=== PATIENT | female | born 1990 | race Caucasian/White ===

== ENCOUNTER 2019-01-06 00:28 | Emergency (ER) | payer MEDICAID ==
--- NOTE | 2019-01-06 00:54 | EDPHY ---
H & P Stated Complaint: 11/30. BLEEDING OFF AND ON, WORSE PAST 4 DAYS DENIES CRAMPING Time Seen by Provider: 01/06/19 00:39 HPI/ROS: Chief Complaint: Vaginal bleeding HPI: 28-year-old who was 1 month status post elective termination of is presenting complaining of persistent vaginal bleeding since the procedure. Patient states that had gotten wire weaver cloth but for the last 4-5 days it has gotten heavier again. She soaking about 8 pads a day. She does have a history of anemia. Has been feeling lightheaded but no fainting. No pelvic pain but has some occasional cramping. No urinary urgency or frequency or dysuria. No vaginal discharge. ROS: 10 systems were reviewed and were negative except those elements noted in the HPI. PMH: Anemia Social History: No smoking, no alcohol, no recreational drug use Family History: non-contributory Physical Exam: Gen: Awake, Alert, No Distress HEENT: Nose: no rhinorrhea Eyes: PERRLA, EOMI Mouth: Moist mucosa Neck: Supple, no JVD Chest: nontender, lungs clear to auscultation Heart: S1, S2 normal, no murmur Abd: Soft, non-tender, no guarding Back: no CVA tenderness, no midline tenderness Ext: no edema, non-tender Skin: no rash Neuro: CN II-XII intact, Sensation grossly intact, Strength 5/5 in bilateral upper and lower extremities - Personal History Current Tetanus/Diphtheria Vaccine: Unsure Current Tetanus Diphtheria and Acellular Pertussis (TDAP): Unsure - Medical/Surgical History Hx Asthma: Yes Hx Chronic Respiratory Disease: No Hx Diabetes: No Hx Cardiac Disease: No Hx Renal Disease: No Hx Cirrhosis: No Hx Alcoholism: No Hx HIV/AIDS: No Hx Splenectomy or Spleen Trauma: No Other PMH: ANEMIA, HYPOTHYROID, - Social History Smoking Status: Never smoked Constitutional: Initial Vital Signs Temperature (C) 36.8 C 01/06/19 00:32 Heart Rate 82 01/06/19 00:32 Respiratory Rate 18 01/06/19 00:32 Blood Pressure 113/71 01/06/19 00:32 O2 Sat (%) 98 01/06/19 00:32 O2 Delivery Mode Room Air Allergies/Adverse Reactions: cephalexin [From [employer]] Allergy (Verified 01/06/19 00:36) Home Medications: Medication Instructions Recorded Levothyroxine [Synthroid 50 mcg 50 mcg PO DAILY06 01/06/19 (*)] Sertraline HCl 20 mg PO 01/06/19 Medical Decision Making - Diagnostics Imaging Results: EXAM: US Pelvis, Complete. CLINICAL HISTORY: 1 month ago, now bleeding and pelvic pain TECHNIQUE: Transvaginal and transabdominal pelvic ultrasound (complete) with image documentation. COMPARISON: None provided. FINDINGS: ENDOMETRIUM: Measures 17 mm and appears hypervascular raising the possibility of retained products of conception UTERUS/CERVIX: Normal size and contour. No fibroid detected. Measures 9.4 x 5.2 cm RIGHT OVARY: Normal follicles. No adnexal mass. Normal blood flow. Measures 6.2 x 4.8 x 4.4 cm and demonstrates a 5.6 x 4.2 x 3.7 cm complex cyst LEFT OVARY: Normal follicles. No adnexal mass. Normal blood flow. Measures 2.7 x 2.1 x 2.7 cm FREE FLUID: No free fluid. IMPRESSION: Thickened hypervascular endometrium raising the possibility of retained products of conception. A complex right ovarian cyst is noted. ELECTRONICALLY SIGNED BY: Rickie Chaudhry MD Jan 06, 2019 1:30:37 AM MDT ED Course/Re-evaluation: Ultrasound an laboratory results noted. Patient is significantly anemic. She is ambulating and is not hypotensive here. She has not had any syncope. She has no pain. I have discussed with Dr. Witt OBGYLuca. She would like the patient seen in their office tomorrow. Patient will call their office 8:00 a.m. Tomorrow morning to be seen that day for range min for a D&C. I have discussed with the patient. She is comfortable with this plan. I do not feel that the patient requires emergency D&C at this time. She has not have a significant leukocytosis. She is afebrile. No signs of infection at this time. - Data Points Laboratory Results: Laboratory Results 01/06/19 01:20 01/06/19 01:20 01/06/19 01/06/19 01/06/19 01:20 01:20 01:20 WBC RBC Hgb Hct MCV MCH MCHC RDW Plt Count MPV Neut % (Auto) Lymph % (Auto) Hodgeman % (Auto) Eos % (Auto) Baso % (Auto) Nucleat RBC Rel Count Absolute Neuts (auto) Absolute Lymphs (auto) Absolute Monos (auto) Absolute Eos (auto) Absolute Basos (auto) Absolute Nucleated RBC Immature Gran % Immature Gran # Sodium 136 mEq/L mEq/L (135-145) Potassium 4.2 mEq/L mEq/L (3.5-5.2) Chloride 107 mEq/L mEq/L (97-110) Carbon Dioxide 22 mEq/l mEq/l (22-31) Anion Gap 7 mEq/L mEq/L (6-14) BUN 11 mg/dL mg/dL (7-23) Creatinine 0.7 mg/dL mg/dL (0.6-1.0) Estimated GFR > 60 Glucose 96 mg/dL mg/dL (70-100) Calcium 9.2 mg/dL mg/dL (8.5-10.4) Beta HCG, Qual POSITIVE Beta HCG, Quant 144.31 mIU/mL H mIU/mL (0.00-4.83) 01/06/19 01:20 WBC 12.12 10^3/uL H 10^3/uL (3.80-9.50) RBC 3.54 10^6/uL L 10^6/uL (4.18-5.33) Hgb 8.3 g/dL L g/dL (12.6-16.3) Hct 26.8 % L % (38.0-47.0) MCV 75.7 fL L fL (81.5-99.8) MCH 23.4 pg L pg (27.9-34.1) MCHC 31.0 g/dL L g/dL (32.4-36.7) RDW 19.0 % H % (11.5-15.2) Plt Count 318 10^3/uL 10^3/uL (150-400) MPV 10.6 fL fL (8.7-11.7) Neut % (Auto) 70.7 % % (39.3-74.2) Lymph % (Auto) 19.9 % % (15.0-45.0) Hodgeman % (Auto) 7.0 % % (4.5-13.0) Eos % (Auto) 1.7 % % (0.6-7.6) Baso % (Auto) 0.3 % % (0.3-1.7) Nucleat RBC Rel Count 0.0 % % (0.0-0.2) Absolute Neuts (auto) 8.56 10^3/uL H 10^3/uL (1.70-6.50) Absolute Lymphs (auto) 2.41 10^3/uL 10^3/uL (1.00-3.00) Absolute Monos (auto) 0.85 10^3/uL H 10^3/uL (0.30-0.80) Absolute Eos (auto) 0.21 10^3/uL 10^3/uL (0.03-0.40) Absolute Basos (auto) 0.04 10^3/uL 10^3/uL (0.02-0.10) Absolute Nucleated RBC 0.00 10^3/uL 10^3/uL (0-0.01) Immature Gran % 0.4 % % (0.0-1.1) Immature Gran # 0.05 10^3/uL 10^3/uL (0.00-0.10) Sodium Potassium Chloride Carbon Dioxide Anion Gap BUN Creatinine Estimated GFR Glucose Calcium Beta HCG, Qual Beta HCG, Quant Departure - Departure Disposition: Home, Routine, Self-Care Clinical Impression: Retained products of conception following , Anemia Condition: Good Instructions: Dysfunctional Uterine Bleeding (ED) Additional Instructions: Follow up with OBGYN tomorrow. Call their office at 8:00 a.m. And they will see you that day. Return to the emergency department for worsening bleeding, fainting, pelvic pain , or any other concerns. Referrals: Siena Witt DO [Doctor of Osteopathy] - As per Instructions
[2019-01-06 01:30] LABS: PLATELET COUNT 318 10^3/uL (150-400)
[2019-01-06 03:09] VITALS: BP 105/48
== END 2019-01-06 03:14 | disposition home or self-care (01) ==
DX: O72.2 Delayed and secondary postpartum hemorrhage (principal); D64.9 Anemia, unspecified

== ENCOUNTER 2019-01-08 15:40 | Day surgery (SDC) | payer MEDICAID ==
[2019-01-08] MEDS ORDERED: DOXYCYCLINE HYCLATE 100 MG CAP/TAB PO ONE ×2 (16:02→18:23)
[2019-01-08] MEDS ORDERED: LR 1,000 ML IV ONE (16:02)
--- NOTE | 2019-01-08 16:13 | PDGENHP ---
History and Physical - Chief Complaint vaginal bleeding - History of Present Illness 28 yo G1 5.5 wk s/p medical termination of at [facility] in [place] 11/29/18. Was 6 wk2d . Per pt - had US at [facility]. Took medication one day and another medication the next day. Has been bleeding daily since then, past week much heavier. Past week - fatigued, lightheaded, dizzy. Unintended preg, was not using contraception. Reg menses. Boyfriend of 1.5 yr. Seen in ED 2 d ago - US suggested retained POC with 1.7cm heterogeneous endometrium with increased vascularity suspicious for retained products. Was to follow up at [facility] yesterday, but was unable to get an appointment. Saw PCP late yesterday - who made sure she had an appointment for today. History Information - Allergies/Home Medication List Allergies/Adverse Reactions: cephalexin [From [employer]] Allergy (Verified 01/06/19 00:36) Home Medications: Levothyroxine [Synthroid 50 mcg (*)] 50 mcg PO DAILY06 01/06/19 [Last Taken Unknown] Sertraline HCl 20 mg PO 01/06/19 [Last Taken Unknown] I have personally reviewed and updated: family history, medical history, social history, surgical history Past Medical History: hypothyroidism - hashimotos. anemia. depression. anxiety. vaginismus - Surgical History Additional surgical history: tonsillectomy 2002. hymenectomy 2003 - Family History Positive for: diabetes type II (father, also alcoholism), stroke (GF at 70) Additional family history: mental illness - M, F, GM. GM - leukemia at 60 - Social History Smoking Status: Never smoked Alcohol Use: None Drug Use: None Review of Systems Review of Systems: ROS: 10pt was reviewed & negative except for what was stated in HPI & below Physical Exam Physical Exam: pelvic: normal external female genitalia vagina - pink, full of blood and clots - due to pt's discomfort with exam, unable to visualize cervix very well while trying to use large cotton swabs to remove blood from vagina cervix - nullip, no lesions, no CMT bimanual - mid ut, NT, NSS adnexa - no masses or tenderness 5'5" 171.2 lb HR 85 112/60 Constitutional: no apparent distress, other (very pale) Eyes: PERRL, EOMI Ears, Nose, Mouth, Throat: moist mucous membranes, hearing normal, ears appear normal Cardiovascular: regular rate and rhythym, no murmur, rub, or gallop Respiratory: no respiratory distress, no rales or rhonchi, clear to auscultation Gastrointestinal: normoactive bowel sounds, soft, non-tender abdomen Genitourinary: no bladder fullness Skin: warm, other (pale) Musculoskeletal: full muscle strength, normal joint ROM Neurologic: AAOx3, sensation intact bilaterally Psychiatric: interacting appropriately Lymph, Heme, Immunologic: no cervical LAD Assessment & Plan Assessment: 28 5.5 wk s/p medical termination of with persistent bleeding, suspected retained POC, anemia. To L&D now to proceed with D&C. NPO since 1100 - will proceed at 1700. Will obtain written informed consent. Bella Schultz MD, FACOG
[2019-01-08 16:27] LABS: PLATELET COUNT 296 10^3/uL (150-400)
[2019-01-08] MEDS ORDERED: PROPOFOL/EMULSION 500 MG/50 ML BOTTLE IV ONE ×4 (16:55→17:40)
[2019-01-08] MEDS ORDERED: LIDOCAINE 2% 2 ML INJ ONE (16:55)
[2019-01-08] MEDS ORDERED: LIDOCAINE 0.5% 50 ML SDV ONE (17:40)
--- NOTE | 2019-01-08 17:45 | POSTANESTH ---
Post Anesthetic Evaluation Cardiovascular Status: Normal, Stable Respiratory Status: Normal, Stable Level of Consciousness/Mental Status: Can Participate in Eval Pain Control: Adequate, Prn Tx Ordered Nausea/Vomiting Control: Adequate, Prn Tx Ordered Complications Possibly Related to Anesthesia: None Noted
--- NOTE | 2019-01-08 17:45 | PDANEPAE ---
ANE Past Medical History - Cardiovascular History Hx Hypertension: No Hx Arrhythmias: No Hx Chest Pain: No - Pulmonary History Hx Asthma/Reactive Airway Disease: Yes Hx Oxygen in Use at Home: No - Neurologic History Hx Cerebrovascular Accident: No - Endocrine History Hx Diabetes: No Hypothyroid: Yes - Renal History Hx Renal Disorders: No - Liver History Hx Hepatic Disorders: No - Neurological & Psychiatric Hx Hx Neurological and Psychiatric Disorders: Yes - Cancer History Hx Cancer: No - GI History Hx Gastrointestinal Disorders: No ANE Review of Systems Review of Systems: ANE Patient History - Allergies Allergies/Adverse Reactions: cephalexin [From Keflet] Allergy (Verified 01/06/19 00:36) - Home Medications Home Medications: Levothyroxine [Synthroid 50 mcg (*)] 50 mcg PO DAILY06 01/06/19 [Last Taken Unknown] Sertraline HCl 150 mg PO DAILY 01/06/19 [Last Taken Unknown] Multivitamin 1 tab PO DAILY 01/08/19 [Last Taken Unknown] - NPO status NPO Since - Liquids (Date): 01/08/19 NPO Since - Liquids (Time): 14:30 NPO Since - Solids (Date): 01/08/19 NPO Since - Solids (Time): 11:00 - Smoking Hx Smoking Status: Never smoked - Alcohol Use Alcohol Use: None ANE Labs/Vital Signs - Labs Result Diagrams: 01/08/19 16:15 - Vital Signs Blood Pressure: 104/64 Heart Rate: 83 Respiratory Rate: 14 O2 Sat (%): 99 ANE Physical Exam - Airway Neck exam: FROM Mallampati Score: Class 2 Mouth exam: normal dental/mouth exam - Pulmonary Pulmonary: no respiratory distress, no rales or rhonchi, clear to auscultation - Cardiovascular Cardiovascular: regular rate and rhythym, no murmur, rub, or gallop - ASA Status ASA Status: II, E ANE Anesthesia Plan Anesthesia Plan: MAC Total IV Anesthesia: Yes
[2019-01-08] MEDS ORDERED: PROMETHAZINE HCL 25 MG/ML INJ IVP PRN (17:48)
[2019-01-08] MEDS ORDERED: NS 500 ML IV PRN (17:48)
[2019-01-08] MEDS ORDERED: ONDANSETRON 4 MG/2 ML VIAL IVP PRN (17:48)
[2019-01-08] MEDS ORDERED: NALOXONE HCL 0.4 MG/ML INJ IVP PRN (17:48)
[2019-01-08] MEDS ORDERED: METOCLOPRAMIDE 10 MG/2 ML VIAL IVP PRN (17:48)
[2019-01-08] MEDS ORDERED: oxyCODONE IR 5 MG TAB PO PRN ×2 (17:48→19:03)
[2019-01-08] MEDS ORDERED: MEPERIDINE 25 MG/0.5 ML AMP IVP PRN (17:48)
[2019-01-08] MEDS ORDERED: ALBUTEROL 3 ML DEYVIAL IH PRN (17:48)
[2019-01-08] MEDS ORDERED: PHENYLEPHRINE HCL 100 MCG/ML SYR IVP PRN (17:48)
[2019-01-08] MEDS ORDERED: LR 500 ML IV PRN (17:48)
[2019-01-08] MEDS ORDERED: fentaNYL 100 MCG/2 ML INJ IVP PRN (17:48)
[2019-01-08] MEDS ORDERED: HYDROmorphONE/DILAUDID 1 MG/ML INJ IVP PRN (17:48)
[2019-01-08] MEDS ORDERED: ACETAMINOPHEN 500 MG TAB PO PRN (17:48)
[2019-01-08] MEDS ORDERED: PROPOFOL 200 MG/20 ML VIAL ONE ×3 (17:54)
--- NOTE | 2019-01-08 18:30 | POSTOPPROG ---
Post Op Note Date of Operation: 01/08/19 Surgeon: Bella Schultz Anesthesiologist: Darion Fernandes Anesthesia: Other (Specify) (MAC per Dr. 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
[2019-01-08] MEDS ORDERED: KETOROLAC 30 MG/1 ML SDV IVP ONE (19:00)
--- NOTE | 2019-01-08 19:05 | GOP ---
[f rep st] OPERATIVE REPORT DATE OF OPERATION: 01/08/2019 SURGEON: Bella Schultz MD ANESTHESIA: Monitored anesthesia care ANESTHESIOLOGIST: Darion Fernandes MD PREOPERATIVE DIAGNOSIS: Postabortal retained products of conception. POSTOPERATIVE DIAGNOSIS: Postabortal retained products of conception, plus suspected lichen sclerosis. PROCEDURE PERFORMED: 1) Dilation of cervix and suction curettage of uterus 2) Right vulvar biopsy FINDINGS: Uterus sounded to 9 cm at the onset of the procedure. At the end of procedure, the uterus was empty and revealed a very thin endometrial stripe. ESTIMATED BLOOD LOSS: 100 mL. INDICATIONS: 28-year-old 1, para 0 female with persistent bleeding approximately 5.5 weeks post medical . She also had anemia, and suspected retained products of conception on ultrasound. During her preop workup, she also revealed a significant history of vaginismus. DESCRIPTION OF PROCEDURE: Written informed consent was reviewed and obtained from the patient in the preoperative area. She also received 100 mg of doxycycline p.o. prior to the procedure. She was taken to the operating room and placed in the dorsal supine position. A WHO time-out was performed. When MAC was deemed adequate, she was placed in the modified dorsal lithotomy position using the blue stirrups. Her perineum and vagina were sterilely prepared with Betadine in a standard fashion. She was sterilely draped. Examination under anesthesia revealed an 8-week-size retroverted uterus. A speculum was inserted into the vagina. A paracervical block was placed using 0.5% Marcaine. A total of 10 mL was used. A tenaculum was then placed on the anterior lip of the cervix. The cervix was then dilated with Hegar dilators to 10 mm. Suction curettage was then performed until the entire uterine cavity revealed cry. One pass with a sharp curet was performed globally over the entire uterine cavity, and one more additional pass of the suction curettage was performed. The tenaculum was then removed from the anterior lip of the cervix. Silver nitrate and direct pressure were used to obtain hemostasis. The speculum was removed. The right posterior vulvar area was noted to have an appearance consistent with lichen sclerosis, with flattening of the labia and parchment paper appearance. A small elliptical incision was made using a knife , and a biopsy was taken. Silver nitrate and direct pressure were also used over this biopsy site to obtain hemostasis. Sponge, lap, and needle counts were correct x2. The patient was taken to the recovery room in stable condition. She will be given another dose of doxycycline for this evening. She is to follow up in the office in 1 to 2 weeks. She was given strict instructions of no unprotected intercourse until a negative test is obtained. She may also apply antibiotic ointment 2-3 times per day PROCEDURE: 1. Suction curettage of the uterus. 2. Vulvar biopsy. TOTAL FLUIDS ADMINISTERED: 800 mL. COMPLICATIONS: None. SPECIMENS SENT TO PATHOLOGY: 1. Retained products of conception. 2. Right vulvar biopsy. /[id number]/MODL MTDD
[2019-01-08 19:22] VITALS: BP 89/66
[2019-01-08] MEDS ORDERED: ACETAMINOPHEN 500 MG TAB PO SCH (22:00)
== END 2019-01-08 20:16 | disposition home or self-care (01) ==
LOC: FOBOP 15:40
PROVIDERS: ATTEND Hospitalist
PROC: 10D17ZZ Extraction of Products of Conception, Retained, Via Natural or Artificial Opening (ICD-10-PCS; principal; 2019-01-08)
PROC: 0UBMXZX Excision of Vulva, External Approach, Diagnostic (ICD-10-PCS; 2019-01-08)
DX: O73.1 Retained portions of placenta and membranes, without hemorrhage (principal)
CPT/HCPCS: J1885; J2704; J7613